=== PATIENT | female | born 1995 | race Caucasian/White ===

== ENCOUNTER 2020-12-23 23:50 | Emergency (ER) | payer OTHER ==
[2020-12-24 00:35] LABS: BASOPHIL 0.6 % (0-2); EOSINOPHIL 1.3 % (0-5); HCT 42.5 % (37.0-47.0); HGB 13.4 g/dl (12.5-16.0); LYMPHOCYTE 33.9 % (15-48); MCH 26.9 pg (25.0-31.0); MCHC 31.5 g/dL (32.0-36.0); MCV 85.2 fL (78.0-100.0); MONOCYTE 7.6 % (0-12); MPV 10.3 fL (6.0-9.5); NEUTROPHIL 56.3 % (41-80); NRBC 0; PLT 324 K/uL (150-400); RBC 4.99 M/uL (4.20-5.40); RDW 13.9 % (11.5-14.0); WBC 9.9 K/uL (4.0-10.5)
[2020-12-24 01:15] LABS: ALBUMIN 3.9 g/dL (3.4-5.0); BILIRUBIN - TOTAL 0.3 mg/dL (0.2-1.0); CREATININE 0.74 mg/dL (0.51-0.95); GLOBULIN (CALCULATION) 4.3 g/dL; POTASSIUM 3.8 mmol/L (3.5-5.1); TOTAL PROTEIN 8.2 g/dL (6.4-8.2)
== END 2020-12-24 01:44 | disposition home or self-care (01) ==
LOC: FER 23:50
PROVIDERS: Emergency Medicine Emergency Medical Services
DX: R07.89 Other chest pain (principal); F45.8 Other somatoform disorders; Z88.5 Allergy status to narcotic agent
CPT/HCPCS: 36415; 71045; 80053; 84484; 85025; 93005

== ENCOUNTER 2021-11-10 21:37 | Emergency (ER) | payer OTHER ==
[2021-11-10 22:14] LABS: BASOPHIL 0.5 % (0-2); EOSINOPHIL 1.2 % (0-5); HCT 40.9 % (37.0-47.0); LYMPHOCYTE 33.8 % (15-48); MCH 26.6 pg (25.0-31.0); MCHC 31.8 g/dL (32.0-36.0); MCV 83.8 fL (78.0-100.0); MONOCYTE 6.6 % (0-12); MPV 10.4 fL (6.0-9.5); NEUTROPHIL 57.7 % (41-80); NRBC 0; PLT 309 K/uL (150-400); RBC 4.88 M/uL (4.20-5.40); WBC 10.2 K/uL (4.0-10.5)
[2021-11-10 22:14] LABS: BILIRUBIN NEGATIVE (NEGATIVE); BLOOD NEGATIVE Ery/uL (NEGATIVE); CLARITY CLEAR (CLEAR); COLOR YELLOW (YELLOW); GLUCOSE (U) NORMAL (NORMAL); LEUKOCYTES NEGATIVE Leu/uL (NEGATIVE); NITRITE NEGATIVE (NEGATIVE); PROTEIN TRACE (LOW) mg/dL (NEGATIVE); pH 7.5 (5.0-9.0)
[2021-11-10 22:28] LABS: ALBUMIN 3.6 g/dL (3.4-5.0); ALKALINE PHOSHATASE 142 U/L (46-116); ALT 25 U/L (14-59); AST 15 U/L (15-37); BILIRUBIN - TOTAL 0.3 mg/dL (0.2-1.0); BUN 14 mg/dL (7-18); BUN/CREAT RATIO (CALC) 20.6 RATIO; CHLORIDE 103 mmol/L (98-107); CO2 (BICARBONATE) 28 mmol/L (21-32); CREATININE 0.68 mg/dL (0.51-0.95); GLOBULIN (CALCULATION) 4.4 g/dL; GLUCOSE 114 mg/dL (74-106); POTASSIUM 3.9 mmol/L (3.5-5.1)
[2021-11-10 22:38] LABS: AMYLASE 37 U/L (25-115); LIPASE 133 U/L (73-393)
[2021-11-10 23:00] LABS: CORONAVIRUS 2019 SARS-COV-2 NEGATIVE (NEGATIVE); INFLUENZA A NAA NEGATIVE (NEGATIVE)
[2021-11-11] MEDS ORDERED: MACROBID100 MG PO (03:14)
[2021-11-11] MEDS ORDERED: DIFLUCAN 100MG100 MG PO (03:14)
[2021-11-11] MEDS ORDERED: ONDANSETRON ODT4 MG PO (03:14)
[2021-11-11] MEDS ORDERED: VICODIN 10/3251 EACH PO (03:14)
== END 2021-11-11 03:22 | disposition home or self-care (01) ==
LOC: FER 21:37
PROVIDERS: Emergency Medicine
DX: N39.0 Urinary tract infection, site not specified (principal); R07.89 Other chest pain; Z90.49 Acquired absence of other specified parts of digestive tract; Z88.5 Allergy status to narcotic agent; Z20.822 Contact with and (suspected) exposure to COVID-19
CPT/HCPCS: 36415; 71045; 80053; 81001; 82150; 83690; 84484; 85025; 93005; J7030; Q9967; U0002